=== PATIENT | male | born 1945 | race Caucasian/White ===

== ENCOUNTER 2021-02-21 16:02 | Emergency (ER) | payer OTHER ==
[2021-02-21 17:24] LABS: HEMOGLOBIN 13.5 gm/dl (14.0-17.5); RED BLOOD COUNT 4.59 M/UL (4.20-5.50); WHITE BLOOD COUNT 8.6 K/UL (4.5-11.0)
[2021-02-21 17:40] LABS: BUN/CREATININE RATIO 16 (0-10)
[2021-02-21] MEDS ORDERED: CITRATE OF MAG296 ML PO (18:24)
== END 2021-02-21 19:00 | disposition home or self-care (01) ==
LOC: ER1 16:02
PROVIDERS: Physician Assistant
DX: K59.00 Constipation, unspecified (principal); I10 Essential (primary) hypertension; Z88.8 Allergy status to other drugs, medicaments and biological substances
CPT/HCPCS: 80053; 81001; 85025; 99284

== ENCOUNTER 2021-04-29 01:52 | Emergency (ER) | payer MEDICARE ==
[~2021-04-29 01:52] MED LIST: CITRATE OF MAG296 ML PO
[2021-04-29 02:36] LABS: HEMOGLOBIN 14.1 gm/dl (14.0-17.5); RED BLOOD COUNT 4.75 M/UL (4.20-5.50); WHITE BLOOD COUNT 5.9 K/UL (4.5-11.0)
[2021-04-29 02:59] LABS: BUN/CREATININE RATIO 10 (0-10)
[2021-04-29] MEDS ORDERED: PERCOCET 5/325 T1 EA PO ×2 (06:15→06:17)
== END 2021-04-29 06:45 | disposition home or self-care (01) ==
LOC: ER1 01:52
PROVIDERS: Family Medicine
DX: K86.3 Pseudocyst of pancreas (principal); I10 Essential (primary) hypertension; E03.9 Hypothyroidism, unspecified
CPT/HCPCS: 80053; 81001; 82550; 82553; 83605; 83690; 83735; 83874; 84484; 85025; 87086; 93005; 96374; 96375; 99283; 99284; J2270; J2405; Q9967

== ENCOUNTER 2021-06-23 21:50 | Emergency (ER) | payer OTHER, MEDICARE ==
[~2021-06-23 21:50] MED LIST changes: +PERCOCET 5/325 T1 EA PO
[2021-06-23 23:18] LABS: HEMOGLOBIN 13.9 gm/dl (14.0-17.5); RED BLOOD COUNT 4.44 M/UL (4.20-5.50); WHITE BLOOD COUNT 6.9 K/UL (4.5-11.0)
[2021-06-23 23:35] LABS: BUN/CREATININE RATIO 14 (0-10)
== END 2021-06-24 01:30 | disposition home or self-care (01) ==
LOC: ER1 21:50
PROVIDERS: Family Medicine
DX: I10 Essential (primary) hypertension (principal); Z88.8 Allergy status to other drugs, medicaments and biological substances
CPT/HCPCS: 80053; 82550; 82553; 83874; 84484; 85025; 93005; 99283

== ENCOUNTER 2021-09-12 09:23 | Emergency (ER) | payer MEDICARE | END 2021-09-12 10:20 | disposition left against medical advice (07) | LOC: ER1 09:23 | DX: Z53.21 Procedure and treatment not carried out due to patient leaving prior to being seen by health care provider (principal) ==